=== PATIENT | male | born 1995 | race Caucasian/White ===

== ENCOUNTER 2022-08-26 13:32 | Outpatient (CLI) | payer OTHER ==
--- NOTE | 2022-08-26 23:32 | MRI Report ---
PROCEDURE: Shoulder RT W/O INDICATIONS: SHOULDER PAIN TECHNIQUE: Noncontrast oblique coronal T2 fast spin echo with fat saturation, oblique sagittal T1 spin echo and T2 fast spin echo with fat saturation, axial T1 spin echo and T2 fast spin echo with fat saturation t hrough the shoulder. COMPARISON: None. FINDINGS: Image quality: Excellent. Rotator cuff:. Tendinosis and low-grade bursal surface partial-thickness tear involving distal supras pinatus at its insertion on humeral head extending to musculotendinous junction. Distal infraspinatus and subscapularis tendons are intact. No full-thickness rotator cuff tendon rupture.. No rotator cu ff muscle atrophy on sagittal images. Bones and bursae: No bone marrow contusions or fractures. No acromioclavicular joint degeneration. The acromion demonstrates conventional anatomy, without an os acromiale. Trace amount of subacromial subdeltoid bursal fluid is seen. Capsule and soft tissues: There is very subtle signal abnormality within superior anterior labrum at 12-1 o'clock positions suggestive of superior anterior labral tear. The long head of the biceps tendo n demonstrates normal location and morphology. The rotator interval appears normal, without fibrosis . The coracohumeral ligament is normal in thickness. IMPRESSION: 1. Low-grade bursal surface partial-thickness tear involving distal supraspinatus extending to muscul otendinous junction. No full-thickness rotator cuff tendon rupture. No muscle atrophy. 2. No marrow edema. No fracture or dislocation. Trace amount of subacromial subdeltoid bursal fluid. 3. Suggestion of subtle superior anterior labral tear at 12 to 1:00 position. Reviewed by: Krunal Colbert MD on 08/26/2022 11:38 PM PDT Approved by: Krunal Colbert MD on 08/26/2022 11:38 PM PDT Station ID: [id number]
== END 2022-08-26 13:33 | disposition home or self-care (01) ==
LOC: DI 13:32
DX: M75.111 Incomplete rotator cuff tear or rupture of right shoulder, not specified as traumatic (principal); S43.401A Unspecified sprain of right shoulder joint, initial encounter

== ENCOUNTER 2023-12-30 16:06 | Outpatient (CLI) | payer OTHER ==
--- NOTE | 2023-12-30 18:36 | MRI Report ---
PROCEDURE: Cervical Spine WO INDICATIONS: MIGRAINE TECHNIQUE: Noncontrast sagittal T1 spin echo and T2 fast spin echo, sagittal STIR, foraminal oblique sagittal T2 fast spin echo, and axial gradient echo or T2 fast spin echo through the cervical spine. COMPARISON: Correlation is made with the accompanying brain MRI. FINDINGS: Image quality: Excellent. Alignment and Curvature: There is overall straightening of the normal cervical lordosis. No signific ant AP alignment abnormality can be seen. Bone Marrow: Marrow demonstrates normal overall signal. Spinal Cord: Visualized spinal cord has normal size and signal. No cerebellar tonsillar herniation. Paraspinous Soft Tissues: No paravertebral masses. Prevertebral soft tissues are normal in thicknes s. C2-C3: Normal in appearance. C3-C4: Normal in appearance. C4-C5: The disc height and disc signal are well preserved. Mild disc osteophyte complex is seen. No significant neural foraminal or central canal narrowing can be seen. C5-C6: The disc height and disc signal are well preserved. Moderate disc osteophyte complex is seen. No significant neural foraminal or central canal narrowing can be seen. C6-C7: Normal in appearance. C7-T1: Normal in appearance. IMPRESSION: Straightening of the normal cervical lordosis is seen, which is commonly observed in patients with mu scular spasm. No central canal narrowing or neuroforaminal narrowing can be seen throughout. Reviewed by: Evens Yarbrough MD on 12/30/2023 5:35 PM [facility] Approved by: Evens Yarbrough MD on 12/30/2023 5:35 PM [facility] Station ID: [id number]
--- NOTE | 2023-12-30 18:37 | MRI Report ---
PROCEDURE: Brain WO INDICATIONS: MIGRAINE TECHNIQUE: Noncontrast axial T1 spin echo, axial T2 fast spin echo, sagittal and axial FLAIR, coronal T2 fast sp in echo, axial gradient echo, axial diffusion and ADC through the brain. COMPARISON: Correlation is made with the accompanying cervical spine MRI. FINDINGS: Image quality: Excellent. CSF Spaces: Basal cisterns are patent. No extra-axial fluid collections. Ventricles are normal in size and shape. Brain: No intracranial masses or hemorrhage. Landeros/white matter interface is normal. Brainstem appe ars normal. Diffusion-weighted images demonstrate no acute ischemic insult. No chronic ischemic ins ults. Normal intravascular flow voids are present. The cerebellar tonsils demonstrate normal shape and are not low-lying. Skull and face: Calvarium has normal marrow signal. Orbits appear normal. Sinuses: Sinuses and mastoids are clear. IMPRESSION: A cause of headache cannot be seen on these images. To the limits of this noncontrast study, no findings of masses or mass effect can be seen. No findings of hydrocephalus or Chiari I malformation can be seen. Reviewed by: Evens Yarbrough MD on 12/30/2023 5:36 PM [facility] Approved by: Evens Yarbrough MD on 12/30/2023 5:36 PM [facility] Station ID: [id number]
== END 2023-12-30 16:07 | disposition home or self-care (01) ==
LOC: DI 16:06
PROVIDERS: ATTEND Student in an Organized Health Care Education/Training Program
DX: G43.909 Migraine, unspecified, not intractable, without status migrainosus (principal)